=== PATIENT | female | born 1995 | race Caucasian/White ===

== ENCOUNTER 2018-02-08 20:45 | Emergency (ER) | payer MEDICAID, MEDICARE ==
[~2018-02-08] VITALS: Ht 160 cm; Wt 75.0 kg
[2018-02-08] MEDS ORDERED: IBUPROFEN 600MG TABLET PO ONE (23:15)
[2018-02-09 00:15] VITALS: BP 110/65
== END 2018-02-09 00:16 | disposition home or self-care (01) ==
LOC: ER 20:45
DX: H60.91 Unspecified otitis externa, right ear (principal)
CPT/HCPCS: 99283

== ENCOUNTER 2018-07-29 17:25 | Emergency (ER) | payer MEDICARE ==
[~2018-07-29] VITALS: Ht 160 cm; Wt 78.0 kg
[2018-07-29] MEDS ORDERED: ALBUTEROL (0.5%) 2.5MG/0.5ML NEB HHN ONE (23:00)
[2018-07-30 02:08] VITALS: BP 117/85
== END 2018-07-30 02:09 | disposition home or self-care (01) ==
LOC: ER 17:25
DX: R07.9 Chest pain, unspecified (principal); J45.909 Unspecified asthma, uncomplicated; E05.90 Thyrotoxicosis, unspecified without thyrotoxic crisis or storm
CPT/HCPCS: 71045; 81025; 93005; 94640; 99284; J7611

== ENCOUNTER 2018-08-17 17:38 | Emergency (ER) | payer MEDICARE ==
[~2018-08-17] VITALS: Ht 162.6 cm; Wt 60.0 kg
[2018-08-17 17:41] VITALS: BP 130/82
[2018-08-17] MEDS ORDERED: IBUPROFEN 600MG TABLET PO STA (18:35)
== END 2018-08-17 19:29 | disposition home or self-care (01) ==
LOC: ER 17:38
DX: R07.89 Other chest pain (principal); R06.02 Shortness of breath; J45.909 Unspecified asthma, uncomplicated; E05.90 Thyrotoxicosis, unspecified without thyrotoxic crisis or storm; Z98.890 Other specified postprocedural states
CPT/HCPCS: 71045; 93005; 99283

== ENCOUNTER 2018-10-09 22:03 | Emergency (ER) | payer MEDICARE ==
[~2018-10-09] VITALS: Ht 160 cm; Wt 82.0 kg
[2018-10-10] MEDS ORDERED: IBUPROFEN 600MG TABLET PO ONE (01:15)
[2018-10-10 02:50] VITALS: BP 132/86
== END 2018-10-10 02:53 | disposition home or self-care (01) ==
LOC: ER 22:03
DX: S93.491A Sprain of other ligament of right ankle, initial encounter (principal); E05.90 Thyrotoxicosis, unspecified without thyrotoxic crisis or storm; W10.1XXA Fall (on)(from) sidewalk curb, initial encounter; Y93.89 Activity, other specified; Y92.89 Other specified places as the place of occurrence of the external cause; Y99.8 Other external cause status; Z98.890 Other specified postprocedural states
CPT/HCPCS: 73610; 73630; 81025; 99283

== ENCOUNTER 2023-05-02 16:25 | Emergency (ER) | payer MEDICARE, OTHER ==
[~2023-05-02] VITALS: Ht 160 cm; Wt 79.0 kg
[2023-05-02 16:35] VITALS: O2SAT 100
[2023-05-02] MEDS ORDERED: KETOROLAC 60MG/2ML VIAL IM ONE (16:45)
[2023-05-02] MEDS ORDERED: NAPR-1176 MT ×2 (17:39)
[2023-05-02] MEDS ORDERED: LIDO700A15 TP (17:39)
[2023-05-02] MEDS ORDERED: CYCL5TAB MT (17:43)
[2023-05-02] MEDS ORDERED: IBUP-2029 MT (17:55)
[2023-05-02] MEDS ORDERED: KETOROLAC 60MG/2ML VIAL IM NR (18:45)
[2023-05-02 18:58] LABS: CLARITY URINE CLEAR (CLEAR); COLOR URINE YELLOW (YELLOW); GLUCOSE URINE NEGATIVE (NEGATIVE); KETONES URINE NEGATIVE (NEGATIVE); LEUKOCYTE ESTERASE URINE TRACE (NEGATIVE); NITRITE URINE POSITIVE (NEGATIVE); OCCULT BLOOD URINE NEGATIVE (NEGATIVE); PROTEIN URINE NEGATIVE (NEGATIVE); SPECIFIC GRAVITY URINE 1.013 (1.005-1.030); UROBILINOGEN URINE 0.2 E.U./dL (0.2-1.0)
[2023-05-02 19:01] LABS: RBC URINE 0-2 /hpf (0-2); SQUAMOUS EPITHELIAL CELL URINE NONE SEEN /lpf (RARE/1+); YEAST URINE NONE SEEN
[2023-05-02 19:16] VITALS: BP 132/78; PULSE 99; RESP 18; TEMP 98.6
[2023-05-02 19:35] LABS: BACTERIA URINE 3+
== END 2023-05-02 19:16 | disposition home or self-care (01) ==
LOC: ER 16:37
DX: M54.6 Pain in thoracic spine (principal); E05.90 Thyrotoxicosis, unspecified without thyrotoxic crisis or storm
CPT/HCPCS: 99284; 81003; 81025; 73030; 96372; J1885